=== PATIENT | male | born 1965 | race African-American/Black ===

== ENCOUNTER 2018-10-12 07:44 | Inpatient (IN) | payer BC, OTHER ==
[~2018-10-12] VITALS: Ht 180.3 cm; Wt 93.0 kg
[2018-10-12] VITALS (7 sets, daily range): BP systolic 125–176; BP diastolic 68–87
[2018-10-12] MEDS ORDERED: AVAPRO300 MG ORAL (07:55)
[2018-10-12] MEDS ORDERED: CRESTOR10 M2 ORAL (07:55)
[2018-10-12] MEDS ORDERED: WARFARIN SODIUM5 MG ORAL (07:55)
[2018-10-12] MEDS ORDERED: AMLODIPINE BESY10 MG ORAL (07:55)
[2018-10-12] MEDS ORDERED: ASPIRIN81 MG ORAL (07:55)
[2018-10-12] MEDS ORDERED: HYDRALAZINE HCL50 MG ORAL (07:55)
--- NOTE | 2018-10-12 08:06 | NUR ---
ED Nurse Note: Pt came in from home due to HTN with headache and vomiting since 0300 this morning. Pt BP upon arrival is 176/87. Emesis was clear fluid and phlegm. Pain 8/10 throbbing CURRIE. Pt visisted [facility] on 10/09/18 and discharged on 10/10/18 for the same reasons. AOx4, other VSS. Will cont to monitor.
--- NOTE | 2018-10-12 08:08 | Emergency Room Report ---
History of Present Illness General Chief Complaint: Hypertension Source: Patient Present Illness HPI Patient presents with complaints of uncontrolled blood pressure headaches vomiting Patient reports that he was recently at [facility] Was started on 3 new medications including hydralazine Over the past night he felt worse Increasingly nauseated blood pressure was at 180 at home Patient denies any focal weakness denies any chest pain denies any back or flank pain And presents with continued discomfort Allergies: Coded Allergies: No Known Allergies (Unverified , 10/12/18) Patient History Pertinent Family History: none Reviewed Nursing Documentation: PMH: Agreed; PSxH: Agreed Nursing Documentation-PMH Past Medical History: No History, Except For Hx Cardiac Problems: No - DVT on BLE Hx Hypertension: Yes Hx Pacemaker: No Hx Asthma: No Hx COPD: No Hx Diabetes: No Hx Cancer: No Hx Gastrointestinal Problems: No Hx Dialysis: No History Of Psychiatric Problem: No Hx Neurological Problems: No Hx Cerebrovascular Accident: No Hx Seizures: No Review of Systems All Other Systems: negative except mentioned in HPI Physical Exam Vital Signs Date Time Temp Pulse Resp B/P (MAP) Pulse Ox O2 Delivery O2 Flow Rate FiO2 10/12/18 07:48 97.9 97 16 96 Room Air 10/12/18 08:05 176/87 Sp02 EP Interpretation: reviewed, normal General Appearance: well appearing, no apparent distress Head: normocephalic, atraumatic Eyes: bilateral eye PERRL, bilateral eye EOMI ENT: hearing grossly normal, normal pharynx, TMs + canals normal, uvula midline Neck: full range of motion, supple, no meningismus, no bony tend Respiratory: lungs clear, normal breath sounds, no rhonchi, no respiratory distress, no retraction, no accessory muscle use Cardiovascular #1: normal peripheral pulses, regular rate, rhythm, no edema, no gallop, no JVD, no murmur Gastrointestinal: normal bowel sounds, non tender, soft, no mass, no organomegaly, non-distended, no guarding, no hernia, no pulsatile mass, no rebound Genitourinary: no CVA tenderness Musculoskeletal: normal inspection Neurologic: oriented x3, responsive, assisted living director III-XII nml as tested, motor strength/ tone normal, sensory intact Psychiatric: mood/affect normal Skin: normal color, no rash, warm/dry, palpation normal Lymphatic: normal inspection, no adenopathy Medical Decision Making Diagnostic Impression: Primary Impression: Malignant hypertension Additional Impression: Nausea & vomiting ER Course Patient is a fairly complex patient with multiple differential to consideration including but not limited to cardiac cardiopulmonary and vascular emergencies Patient's blood pressure has improved after acute intervention I spoke to patient's hospitalist who saw the patient recently at [facility] patient did not have symptoms of a nausea vomiting at that time patient also has multiple comorbidities including vascular disease At this time is admitted for further care please note that I spoke to [facility] hospitalist I spoke to 2 different physicians and I was told at this time after 4 hours That the patient has been requested for admission here Labs Test 10/12/18 08:20 10/12/18 15:30 White Blood Count 8.6 K/UL (4.8-10.8) Red Blood Count 4.90 M/UL (4.70-6.10) Hemoglobin 14.3 G/DL (14.2-18.0) Hematocrit 44.6 % (42.0-52.0) Mean Corpuscular Volume 91 FL (80-99) Mean Corpuscular Hemoglobin 29.2 PG (27.0-31.0) Mean Corpuscular Hemoglobin Concent 32.1 G/DL (32.0-36.0) Red Cell Distribution Width 12.9 % (11.6-14.8) Platelet Count 341 K/UL (150-450) Mean Platelet Volume 6.2 FL (6.5-10.1) Neutrophils (%) (Auto) 80.8 % (45.0-75.0) Lymphocytes (%) (Auto) 11.2 % (20.0-45.0) Monocytes (%) (Auto) 6.5 % (1.0-10.0) Eosinophils (%) (Auto) 0.2 % (0.0-3.0) Basophils (%) (Auto) 1.3 % (0.0-2.0) Sodium Level 134 MMOL/L (136-145) Potassium Level 4.0 MMOL/L (3.5-5.1) Chloride Level 96 MMOL/L (98-107) Carbon Dioxide Level 26 MMOL/L (21-32) Anion Gap 12 mmol/L (5-15) Blood Urea Nitrogen 16 mg/dL (7-18) Creatinine 1.3 MG/DL (0.55-1.30) Estimat Glomerular Filtration Rate 58.0 mL/min (>60) Glucose Level 128 MG/DL (74-106) Calcium Level 9.9 MG/DL (8.5-10.1) Total Bilirubin 0.5 MG/DL (0.2-1.0) Aspartate Amino Transf (AST/SGOT) 13 U/L (15-37) Alanine Aminotransferase (ALT/SGPT) 23 U/L (12-78) Alkaline Phosphatase 92 U/L (46-116) Total Creatine Kinase 111 U/L (26-308) Creatine Kinase MB 0.7 NG/ML (0.0-3.6) Creatine Kinase MB Relative Index 0.6 Troponin I 0.009 ng/mL (0.000-0.056) Total Protein 8.5 G/DL (6.4-8.2) Albumin 4.2 G/DL (3.4-5.0) Globulin 4.3 g/dL Albumin/Globulin Ratio 1.0 (1.0-2.7) Lipase 159 U/L (73-393) Prothrombin Time 36.9 SEC (9.30-11.50) Prothromb Time International Ratio 3.8 (0.9-1.1) EKG Diagnostic Results Rate: normal Rhythm: NSR ST Segments: no acute changes Rhythm Strip Diag. Results EP Interpretation: yes Rate: 70 Rhythm: NSR, no PVC's, no ectopy Chest X-Ray Diagnostic Results Chest X-Ray Diagnostic Results : Chest X-Ray Ordered: Yes # of Views/Limited/Complete: 1 View Indication: Chest Pain EP Interpretation: Yes Interpretation: no consolidation, no effusion, no pneumothorax Impression: No acute disease - Mild left hemidiaphragm elevation Electronically Signed by: Kole Flanagan DO Last Vital Signs Date Time Temp Pulse Resp B/P (MAP) Pulse Ox O2 Delivery O2 Flow Rate FiO2 10/12/18 08:05 83 20 176/87 99 Room Air 10/12/18 07:48 97.9 Status: improved Disposition: ADMITTED INPATIENT Condition: Serious Kole Flanagan DO October 12, 2018 08:08
--- NOTE | 2018-10-12 08:16 | NUR ---
ED Nurse Note: Blood drawn and sent to lab.
[2018-10-12 08:40] LABS: BASOPHILS % (AUTO) 1.3 % (0.0-2.0); EOSINOPHILS % (AUTO) 0.2 % (0.0-3.0); HEMATOCRIT 44.6 % (42.0-52.0); HEMOGLOBIN 14.3 G/DL (14.2-18.0); LYMPHOCYTES % (AUTO) 11.2 % (20.0-45.0); MEAN CORPUSCULAR VOLUME 91 FL (80-99); MONOCYTES % (AUTO) 6.5 % (1.0-10.0); NEUTROPHILS % (AUTO) 80.8 % (45.0-75.0); PLATELET COUNT 341 K/UL (150-450); RED CELL DISTRIBUTION WIDTH 12.9 % (11.6-14.8); WHITE BLOOD COUNT 8.6 K/UL (4.8-10.8)
[2018-10-12 08:48] LABS: ANION GAP 12 mmol/L (5-15); BLOOD UREA NITROGEN 16 mg/dL (7-18); CALCIUM 9.9 MG/DL (8.5-10.1); CARBON DIOXIDE 26 MMOL/L (21-32); CHLORIDE 96 MMOL/L (98-107); CREATININE 1.3 MG/DL (0.55-1.30); SODIUM 134 MMOL/L (136-145)
[2018-10-12 09:02] LABS: ALANINE AMINOTRANSFERASE 23 U/L (12-78); ALBUMIN 4.2 G/DL (3.4-5.0); ALKALINE PHOSPHATASE 92 U/L (46-116); ASPARTATE AMINO TRANSFERASE 13 U/L (15-37); BILIRUBIN,TOTAL 0.5 MG/DL (0.2-1.0); CKMB 0.7 NG/ML (0.0-3.6); CREATINE KINASE 111 U/L (26-308)
--- NOTE | 2018-10-12 09:45 | NUR ---
ED Nurse Note: Pt ambulated to the bathroom with stady gait, no active vomiting at this time.
--- NOTE | 2018-10-12 11:42 | Diagnostic Imaging Report ---
Indication: Dyspnea Comparison: None A single view chest radiograph was obtained. Findings: Cardiomediastinal appearance is within normal limits for age. The lungs are clear. Pulmonary vascularity is appropriate. The diaphragmatic contour is smooth and costophrenic angles are sharp. No pleural effusions are identified. The bones are unremarkable. Impression: No acute findings
--- NOTE | 2018-10-12 12:36 | NUR ---
ED Nurse Note: Report given to NINA Esquivel at ext [phone]. Pt to be transfered to room 214-[address] [facility] per protocol with all belongings.
--- NOTE | 2018-10-12 12:44 | NUR ---
ED Nurse Note: PT. AGREED TO STAY IN THE HOSPITAL BUT NOW WANTS TO GET TRANSFERRED. PT. HAS BEEN CHANGING HIS DECISIONS. EXPLAINED MULTIPLE TIMES TO THE PT. THE INSURANCE ISSUE. [facility]
--- NOTE | 2018-10-12 14:00 | NUR ---
NURSE NOTES: pt came from ER with Dx HTN, awake, alert, oriented, BP 150/79, no co SOB, no co chest pain, pt on RA, skin warm and dry to touch, intact, [facility] came to transfer pt other hospital, but BERNARD from [facility] say pt need stay in [place], dr. Henao aware.
--- NOTE | 2018-10-12 14:58 | History & Physical ---
History and Physical History & Physicial dict emesis CURRIE HTN aortoiliac occlusive disease John Henao MD October 12, 2018 14:58
[2018-10-12] MEDS ORDERED: Irbesartan 150mg tablet ORAL SCH (15:00)
[2018-10-12] MEDS: D5NS 1,000 ML IV SCH (15:16)
[2018-10-12 15:56] LABS: INR 3.8 (0.9-1.1)
--- NOTE | 2018-10-12 16:31 | General Progress Note ---
Assessment/Plan Assessment/Plan: GI CONSULT Dictated Assessment - transient N/V - seems to have subsided - Peripheral blood clots - HTN - H/A Recommendations - advance diet - check stool OB - outpatient colonoscopy since over 51 - further w/u if symptoms persist Thank you Alexa Arellano MD Subjective Allergies: Coded Allergies: No Known Allergies (Unverified , 10/12/18) Objective Last 24 Hour Vital Signs Date Time Temp Pulse Resp B/P (MAP) Pulse Ox O2 Delivery O2 Flow Rate FiO2 10/12/18 15:44 98.2 10/12/18 15:42 Room Air 10/12/18 15:13 86 150/86 10/12/18 15:12 150/86 10/12/18 13:30 98.2 78 20 150/79 (102) 98 10/12/18 12:37 97.9 75 20 143/78 100 Room Air 10/12/18 12:25 97.9 75 20 143/78 100 Room Air 10/12/18 10:55 97.9 79 19 155/83 100 Room Air 10/12/18 09:17 97.9 87 20 163/71 98 Room Air 10/12/18 08:09 83 20 Room Air 10/12/18 08:05 83 20 176/87 99 Room Air 10/12/18 07:48 97.9 97 16 96 Room Air Laboratory Tests 10/12/18 08:20: White Blood Count 8.6, Red Blood Count 4.90, Hemoglobin 14.3, Hematocrit 44.6, Mean Corpuscular Volume 91, Mean Corpuscular Hemoglobin 29.2, Mean Corpuscular Hemoglobin Concent 32.1, Red Cell Distribution Width 12.9, Platelet Count 341, Mean Platelet Volume 6.2L, Neutrophils (%) (Auto) 80.8H, Lymphocytes (%) (Auto) 11.2L, Monocytes (%) (Auto) 6.5, Eosinophils (%) (Auto) 0.2, Basophils (%) (Auto ) 1.3, Sodium Level 134L, Potassium Level 4.0, Chloride Level 96L, Carbon Dioxide Level 26, Anion Gap 12, Blood Urea Nitrogen 16, Creatinine 1.3, Estimat Glomerular Filtration Rate 58.0, Glucose Level 128H, Calcium Level 9.9, Total Bilirubin 0.5, Aspartate Amino Transf (AST/SGOT) 13L, Alanine Aminotransferase ( ALT/SGPT) 23, Alkaline Phosphatase 92, Total Creatine Kinase 111, Creatine Kinase MB 0.7, Creatine Kinase MB Relative Index 0.6, Troponin I 0.009, Total Protein 8.5H, Albumin 4.2, Globulin 4.3, Albumin/Globulin Ratio 1.0, Lipase 159 10/12/18 15:30: Prothrombin Time 36.9H, Prothromb Time International Ratio 3.8H Height (Feet): 5 Height (Inches): 11.00 Weight (Pounds): 205 Alexa Arellano MD October 12, 2018 16:31
--- NOTE | 2018-10-12 19:03 | NUR ---
HAND-OFF: Report given to DANA RN, PT SLEEPING, NO DISTRESS..
--- NOTE | 2018-10-12 19:10 | NUR ---
NURSE NOTES: Pt received from NINA Muhammad alert and oriented x4 with no acute s/s of distress noted. On room air, no s/s of SOB. IV site asymptomatic and patent. Bed in lowest position, bed alarm on. Call light and belongings within reach.
--- NOTE | 2018-10-12 22:00 | Consultation ---
DATE OF CONSULTATION: 10/12/2018 GASTROENTEROLOGY CONSULTATION: CONSULTING PHYSICIAN: Alexa Arellano M.D. REFERRING PHYSICIAN: John Henao M.D. CHIEF COMPLAINT: I was asked to see this patient by Dr. John Henao for evaluation of vomiting. HISTORY OF PRESENT ILLNESS: The patient is a pleasant 53-year-old, man, who was in his usual state of health until the day prior to admission when he noticed vomiting and nausea. The patient without any blood in his emesis. No abdominal pain. No reflux symptoms. It should be noted that recently, he was admitted to [facility] and was diagnosed with peripheral arterial clots in his lower extremities. He has been placed on Coumadin and he is supposed to see a supervisor roving. He has not had any previous history of blood clots and do not have a prolonged sedentary state before the blood clots. He has never had endoscopy or colonoscopy before. His stools are regular and brown. His vomiting has subsided today and he has been tolerating clear liquid diet. He had some headaches on admission with elevated blood pressure and therefore he was felt to have hypertensive emergency. A CT scan of the head has been ordered, but not performed yet. 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 FAMILY HISTORY: Positive for some type of cancer in mother. SOCIAL HISTORY: The patient is single. He has 2 children. He does not smoke or drink alcohol. He works in the [employer] business for [employer]. REVIEW OF SYSTEMS: Otherwise negative. PHYSICAL EXAMINATION: GENERAL: This is a pleasant man, seen in his room. HEENT: Normocephalic, atraumatic. Sclerae anicteric. Oropharynx clear. NECK: Supple. CHEST: Clear to auscultation. CARDIOVASCULAR: Revealed a regular rate. ABDOMEN: Soft. Good bowel sounds. There is no organomegaly. EXTREMITIES: Revealed no edema. LABORATORY DATA: Noted. ASSESSMENT: This patient presents with nausea, vomiting of unclear etiology. The symptoms appeared to be brief and self-limited and possibly related to another primary cause. Hypertensive emergency would be consideration although the patient is better now. In terms of the headache, I agree with the CT scan of the head since he is on anticoagulation. His diet can be advanced as tolerated. I will check the patient's stool occult blood, but I have advised them that he needs a colonoscopy for screening purpose regardless. Should his symptoms of nausea, vomiting persists, further workup including endoscopy and a CT scan be considered. RECOMMENDATIONS: Per above discussion and per orders written in the chart. Thank you for asking me to participate in the care this patient. Alexa Arellano M.D. DR: BETH JOB#: [id number] CC:
--- NOTE | 2018-10-12 22:30 | History and Physical Report ---
DATE OF ADMISSION: 10/12/2018 CHIEF COMPLAINT: Nausea and vomiting. HISTORY OF PRESENT ILLNESS: The patient was admitted through the emergency department for the above-noted symptoms as well as headache and hypertension with blood pressure up to 180 systolic. He was hospitalized recently at [facility] twice. He had abdominal pain and was found to have splenic and renal infarcts and an aortoiliac occlusive disease as well as severe hypertension. He was treated with antihypertensives and anticoagulants. He is noted to have hepatic cirrhosis. He returned to the hospital several days after discharge because of headache and hypertension. His blood pressure medications were adjusted and he was discharged home after an overnight stay 2 days ago. Now, he is vomiting and having headaches. He has no neurologic deficits or complaints. PAST MEDICAL HISTORY: Hypertension, aortoiliac occlusive disease, hepatic cirrhosis, and splenic and renal infarcts. MEDICATIONS: Irbesartan, amlodipine, Coumadin, and hydralazine. ALLERGIES: None. REVIEW OF SYSTEMS: Otherwise unremarkable. There is no history of hypercoagulable state. PHYSICAL EXAMINATION: GENERAL: The patient is alert and responds appropriately, complaining of headache and nausea. VITAL SIGNS: The blood pressure is most recently 150/79. HEENT: The head is normocephalic. The eyes show no scleral icterus or pupillary abnormalities. NECK: No jugular venous distention. CHEST: Clear. CARDIAC: Rhythm is regular. ABDOMEN: Soft and nontender. EXTREMITIES: Have no clubbing, cyanosis, or edema. LABORATORY STUDIES: Unremarkable. IMPRESSIONS: 1. Nausea and vomiting, possible gastroenteritis or adverse medication reaction. 2. Severe hypertension. 3. Cryptogenic cirrhosis. 4. Aortoiliac occlusive disease. PLAN: 1. We will get a CT scan of the brain and resume his blood pressure medications excluding one of them to determine if it is causing the nausea and vomiting. 2. Gastrointestinal consultation has been requested. 3. Intravenous fluids and antiemetics were ordered. John Henao M.D. DR: ZANA JOB#: [id number] CC:
[2018-10-13] VITALS: BP 128/74
[2018-10-13] MEDS: D5NS 1,000 ML IV SCH ×2 (03:27→17:30)
[2018-10-13 04:00] VITALS: BP 134/73
--- NOTE | 2018-10-13 07:15 | NUR ---
NURSE NOTES: I received the patient awake and resting in bed. Patient does not display any signs of distress or SOB. Bed in the lowest position and call light within reach. Patient alert and oriented x4. I will continue to monitor the patient and implement care.
--- NOTE | 2018-10-13 07:37 | NUR ---
HAND-OFF: Report given to NINA Mora. No acute s/s of distress noted.
[2018-10-13 07:47] VITALS: BP 127/60
--- NOTE | 2018-10-13 08:03 | General Progress Note ---
Assessment/Plan Problem List: (1) Malignant hypertension ICD Codes: I10 - Essential (primary) hypertension SNOMED: 59697660 (2) Nausea & vomiting ICD Codes: R11.2 - Nausea with vomiting, unspecified SNOMED: 08884253 Assessment/Plan: add colace no recurrent vomiting fu head CT may need neuro consult Subjective ROS Limited/Unobtainable: Yes Allergies: Coded Allergies: No Known Allergies (Unverified , 10/12/18) Subjective no vomiting over night c/o headache Objective Last 24 Hour Vital Signs Date Time Temp Pulse Resp B/P (MAP) Pulse Ox O2 Delivery O2 Flow Rate FiO2 10/13/18 07:47 98.2 72 18 127/60 (82) 99 10/13/18 04:00 85 10/13/18 04:00 97.9 82 20 134/73 (93) 96 10/13/18 00:00 98.1 90 20 128/74 (92) 96 10/12/18 21:00 Room Air 10/12/18 20:00 99.3 92 18 125/68 (87) 96 10/12/18 20:00 83 10/12/18 16:00 74 10/12/18 16:00 98.2 83 20 134/78 (96) 96 10/12/18 15:44 98.2 10/12/18 15:42 Room Air 10/12/18 15:13 86 150/86 10/12/18 15:12 150/86 10/12/18 13:30 76 10/12/18 13:30 98.2 78 20 150/79 (102) 98 10/12/18 12:37 97.9 75 20 143/78 100 Room Air 10/12/18 12:25 97.9 75 20 143/78 100 Room Air 10/12/18 10:55 97.9 79 19 155/83 100 Room Air 10/12/18 09:17 97.9 87 20 163/71 98 Room Air 10/12/18 08:09 83 20 Room Air 10/12/18 08:05 83 20 176/87 99 Room Air Intake and Output 10/12/18 10/13/18 19:00 07:00 Intake Total 1200 ml 150 ml Output Total 500 ml Balance 1200 ml -350 ml Intake Oral 200 ml 150 ml IV Total 1000 ml Output Urine Total 500 ml Laboratory Tests 10/12/18 08:20: White Blood Count 8.6, Red Blood Count 4.90, Hemoglobin 14.3, Hematocrit 44.6, Mean Corpuscular Volume 91, Mean Corpuscular Hemoglobin 29.2, Mean Corpuscular Hemoglobin Concent 32.1, Red Cell Distribution Width 12.9, Platelet Count 341, Mean Platelet Volume 6.2L, Neutrophils (%) (Auto) 80.8H, Lymphocytes (%) (Auto) 11.2L, Monocytes (%) (Auto) 6.5, Eosinophils (%) (Auto) 0.2, Basophils (%) (Auto ) 1.3, Sodium Level 134L, Potassium Level 4.0, Chloride Level 96L, Carbon Dioxide Level 26, Anion Gap 12, Blood Urea Nitrogen 16, Creatinine 1.3, Estimat Glomerular Filtration Rate 58.0, Glucose Level 128H, Calcium Level 9.9, Total Bilirubin 0.5, Aspartate Amino Transf (AST/SGOT) 13L, Alanine Aminotransferase ( ALT/SGPT) 23, Alkaline Phosphatase 92, Total Creatine Kinase 111, Creatine Kinase MB 0.7, Creatine Kinase MB Relative Index 0.6, Troponin I 0.009, Total Protein 8.5H, Albumin 4.2, Globulin 4.3, Albumin/Globulin Ratio 1.0, Lipase 159 10/12/18 15:30: Prothrombin Time 36.9H, Prothromb Time International Ratio 3.8H Height (Feet): 5 Height (Inches): 11.00 Weight (Pounds): 205 General Appearance: alert EENT: normal ENT inspection Neck: supple Cardiovascular: normal rate Respiratory/Chest: lungs clear Abdomen: normal bowel sounds, non tender, soft Extremities: non-tender Mina Katz MD October 13, 2018 08:03
[2018-10-13] MEDS: Irbesartan 150mg tablet ORAL SCH (08:14)
[2018-10-13 08:41] LABS: BASOPHILS % (AUTO) 1.9 % (0.0-2.0); EOSINOPHILS % (AUTO) 1.8 % (0.0-3.0); HEMOGLOBIN 13.7 G/DL (14.2-18.0); MEAN CORPUSCULAR VOLUME 91 FL (80-99); MONOCYTES % (AUTO) 11.7 % (1.0-10.0); NEUTROPHILS % (AUTO) 50.6 % (45.0-75.0); PLATELET COUNT 346 K/UL (150-450); RED CELL DISTRIBUTION WIDTH 13.1 % (11.6-14.8); WHITE BLOOD COUNT 6.2 K/UL (4.8-10.8)
[2018-10-13 08:46] LABS: INR 3.5 (0.9-1.1)
[2018-10-13 08:48] LABS: ANION GAP 7 mmol/L (5-15); BLOOD UREA NITROGEN 14 mg/dL (7-18); CALCIUM 9.4 MG/DL (8.5-10.1); CARBON DIOXIDE 30 MMOL/L (21-32); CHLORIDE 100 MMOL/L (98-107); CREATININE 1.4 MG/DL (0.55-1.30); POTASSIUM 3.7 MMOL/L (3.5-5.1); SODIUM 137 MMOL/L (136-145)
[2018-10-13] MEDS ORDERED: D5NS 1000ml IV ONE (10:19)
--- NOTE | 2018-10-13 10:45 | Diagnostic Imaging Report ---
Indication: Headache Technique: Contiguous 5 mm thick transaxial imaging of the head obtained in a Siemens Sensation [address] scanner. Soft tissue and bone windows generated. Automatic Exposure Control was utilized. Total Dose length Product (DLP): 1481.[address] Dose Index Volume (CTDIvol): 70.38 mGy Comparison: none Findings: The size and configuration of the cortical sulci, basal cisterns, and ventricles are within normal limits for age. There is no mass effect, midline shift, or edema identified. There is no evidence of acute hemorrhage or abnormal intra-axial or extra-axial fluid collections. The bones and soft tissues are unremarkable. Impression: No mass effect, edema or acute bleed. [facility] has communicated the preliminary results to the Emergency Department. Their findings are largely concordant with this report. The CT scanner at [facility] is accredited by the [employer] and the scans are performed using dose optimization techniques as appropriate to a performed exam including Automatic Exposure control.
[2018-10-13 11:54] VITALS: BP 144/85
[2018-10-13 15:52] VITALS: BP 147/76
--- NOTE | 2018-10-13 19:02 | NUR ---
CASE MANAGEMENT: REVIEW 53Y/M PRESENTED TO ED FROM HOME CC: DIZZINESS . HEADACHE . VOMITING SI: HTN MALIGNANCY . NAUSEA AND VOMITING T 97.9 HR 83 RR 20 BP 176/87 SAT 98% ROOM AIR NA 134 AST 13 PT/INR 36.9/3.8 IS: NS IVF BOLUS X1 PEPCID IV X1 ZOFRAN IV X1 NORVASC PO X1 AVAPRO PO X1 PATIENT ADMITTED TO TELEMETRY UNIT 10/12/2018 DCP: PATIENT IS FROM
--- NOTE | 2018-10-13 19:19 | NUR ---
HAND-OFF: Report given to Yani Ramirez RN.
--- NOTE | 2018-10-13 19:20 | NUR ---
NURSE NOTES: Received report from Yani Arcos RN. patient ion bed AAO X4 with no complaints of acute pain or distress at this time. Kept clean, dry, and, comfortable in bed. Able to express needs and wants appropriatel;y with no difficulty. IV line intact and patent with prescribed fluids running as ordered. Labs reviewed and noted with no new orders at this time. Patient ambulates to the bathroom with minimal assistance and place on continuous cardiac monitoring per protocol. Currently on RA with no S/S of respiratory distress or SOB, 02 saturation at 96-97%. Safety precaution in place; siderails X2 up, call light within reach, bed in lowest position, brakes and alarm on at all times. Needs and wants anticipated and attended. Will continue plan of care and monitor for any changes noted.
[2018-10-13 20:00] VITALS: BP 168/75
--- NOTE | 2018-10-13 20:37 | Consultation ---
History of Present Illness General Chief Complaint: Hypertension Present Illness Allergies: Coded Allergies: No Known Allergies (Unverified , 10/12/18) Medication History Scheduled Amlodipine Besylate* (Amlodipine Besylate*), 10 MG ORAL DAILY, (Reported) Aspirin* (Aspirin*), 81 MG ORAL DAILY, (Reported) Hydralazine Hcl* (Hydralazine Hcl*), 50 MG ORAL EVERY 12 HOURS, (Reported) Irbesartan* (Avapro*), 300 MG ORAL DAILY, (Reported) Rosuvastatin Calcium* (Crestor*), 10 MG ORAL DAILY, (Reported) Warfarin Sod* (Warfarin Sod*), 5 MG ORAL DAILY, (Reported) Patient History Healthcare decision maker Resuscitation status Full Code Advanced Directive on File No Physical Exam Last 24 Hour Vital Signs Date Time Temp Pulse Resp B/P (MAP) Pulse Ox O2 Delivery O2 Flow Rate FiO2 10/13/18 15:52 98.1 72 18 147/76 (99) 98 10/13/18 15:30 69 10/13/18 11:54 98.2 90 20 144/85 (104) 95 10/13/18 11:49 80 10/13/18 09:00 Room Air 10/13/18 08:46 98.2 10/13/18 08:16 72 127/60 10/13/18 08:14 127/60 10/13/18 07:47 77 10/13/18 07:47 98.2 72 18 127/60 (82) 99 10/13/18 04:00 85 10/13/18 04:00 97.9 82 20 134/73 (93) 96 10/13/18 00:00 98.1 90 20 128/74 (92) 96 10/12/18 21:00 Room Air Intake and Output 10/12/18 10/13/18 19:00 07:00 Intake Total 1200 ml 150 ml Output Total 500 ml Balance 1200 ml -350 ml Intake Oral 200 ml 150 ml IV Total 1000 ml Output Urine Total 500 ml Laboratory Tests Test 10/13/18 07:40 White Blood Count 6.2 K/UL (4.8-10.8) Red Blood Count 4.60 M/UL (4.70-6.10) L Hemoglobin 13.7 G/DL (14.2-18.0) L Hematocrit 42.0 % (42.0-52.0) Mean Corpuscular Volume 91 FL (80-99) Mean Corpuscular Hemoglobin 29.7 PG (27.0-31.0) Mean Corpuscular Hemoglobin Concent 32.5 G/DL (32.0-36.0) Red Cell Distribution Width 13.1 % (11.6-14.8) Platelet Count 346 K/UL (150-450) Mean Platelet Volume 6.3 FL (6.5-10.1) L Neutrophils (%) (Auto) 50.6 % (45.0-75.0) Lymphocytes (%) (Auto) 34.0 % (20.0-45.0) Monocytes (%) (Auto) 11.7 % (1.0-10.0) H Eosinophils (%) (Auto) 1.8 % (0.0-3.0) Basophils (%) (Auto) 1.9 % (0.0-2.0) Prothrombin Time 34.6 SEC (9.30-11.50) H Prothromb Time International Ratio 3.5 (0.9-1.1) H Sodium Level 137 MMOL/L (136-145) Potassium Level 3.7 MMOL/L (3.5-5.1) Chloride Level 100 MMOL/L (98-107) Carbon Dioxide Level 30 MMOL/L (21-32) Anion Gap 7 mmol/L (5-15) Blood Urea Nitrogen 14 mg/dL (7-18) Creatinine 1.4 MG/DL (0.55-1.30) H Estimat Glomerular Filtration Rate > 60 mL/min (>60) Glucose Level 97 MG/DL (74-106) Calcium Level 9.4 MG/DL (8.5-10.1) Height (Feet): 5 Height (Inches): 11.00 Weight (Pounds): 205 Medications Current Medications Medications (Trade) Dose Ordered Sig/Dina Route PRN Reason Start Time Stop Time Status Last Admin Dose Admin Acetaminophen (Tylenol) 650 mg Q4H PRN ORAL Mild Pain/Temp > 100.5 10/12/18 14:00 11/11/18 13:59 10/13/18 08:16 Amlodipine Besylate (Norvasc) 10 mg DAILY ORAL 10/13/18 09:00 11/12/18 08:59 10/13/18 08:16 Dextrose/Sodium Chloride 1,000 ml @ 75 mls/hr [id number] IV 10/12/18 14:00 11/11/18 13:59 10/13/18 17:30 Irbesartan (Avapro) 300 mg DAILY ORAL 10/13/18 09:00 11/12/18 08:59 10/13/18 08:14 Ondansetron HCl (Zofran) 4 mg Q4H PRN IVP Nausea & Vomiting 10/12/18 15:08 11/11/18 15:07 Warfarin Sodium (Coumadin per pharmacy) 1 ea DAILY PRN MISC Per rx protocol 10/12/18 15:00 11/11/18 14:59 Assessment/Plan Assessment/Plan: Hematology Consultation REQ MD: John Henao DOS: 10/13/18 RFC: Hypercoagulable disorder HPI Patient presents with complaints of uncontrolled blood pressure headaches vomiting Patient reports that he was recently at [facility] Was started on 3 new medications including hydralazine Over the past night he felt worse Increasingly nauseated blood pressure was at 180 at home Patient denies any focal weakness denies any chest pain denies any back or flank pain And presents with continued discomfort Neuro was consulted Coded Allergies: No Known Allergies (Unverified , 10/12/18) Pertinent Family History: none Reviewed Nursing Documentation: PMH: Agreed; PSxH: Agreed Past Medical History: No History, Except For Hx Cardiac Problems: No - DVT on BLE Hx Hypertension: Yes Hx Pacemaker: No Hx Asthma: No Hx COPD: No Hx Diabetes: No Hx Cancer: No Hx Gastrointestinal Problems: No Hx Dialysis: No History Of Psychiatric Problem: No Hx Neurological Problems: No Hx Cerebrovascular Accident: No Hx Seizures: No Review of Systems: negative except mentioned in HPI PE Vital Signs Date Time Temp Pulse Resp B/P (MAP) Pulse Ox O2 Delivery O2 Flow Rate FiO2 10/12/18 07:48 97.9 97 16 96 Room Air 10/12/18 08:05 176/87 Sp02 EP Interpretation: reviewed, normal General Appearance: well appearing, no apparent distress Head: normocephalic, atraumatic Eyes: bilateral eye PERRL, bilateral eye EOMI ENT: hearing grossly normal, normal pharynx, TMs + Neck: full range of motion, supple, no meningismus, no bony tend Respiratory: lungs clear, normal breath sounds Cardiovascular: normal peripheral pulses, regular rate Gastrointestinal: normal bowel sounds, non tender, soft, no mass, no organomegaly Genitourinary: no CVA tenderness Musculoskeletal: normal inspection Neurologic: oriented x3, responsive, 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 as tested, motor strength/ tone normal Psychiatric: mood/affect normal Skin: normal color, no rash, warm/dry, palpation normal Lymphatic: normal inspection, no adenopathy Labs Test 10/12/18 08:20 10/12/18 15:30 White Blood Count 8.6 K/UL (4.8-10.8) Red Blood Count 4.90 M/UL (4.70-6.10) Hemoglobin 14.3 G/DL (14.2-18.0) Hematocrit 44.6 % (42.0-52.0) Mean Corpuscular Volume 91 FL (80-99) Mean Corpuscular Hemoglobin 29.2 PG (27.0-31.0) Mean Corpuscular Hemoglobin Concent 32.1 G/DL (32.0-36.0) Red Cell Distribution Width 12.9 % (11.6-14.8) Platelet Count 341 K/UL (150-450) Mean Platelet Volume 6.2 FL (6.5-10.1) Neutrophils (%) (Auto) 80.8 % (45.0-75.0) Lymphocytes (%) (Auto) 11.2 % (20.0-45.0) Monocytes (%) (Auto) 6.5 % (1.0-10.0) Eosinophils (%) (Auto) 0.2 % (0.0-3.0) Basophils (%) (Auto) 1.3 % (0.0-2.0) Sodium Level 134 MMOL/L (136-145) Potassium Level 4.0 MMOL/L (3.5-5.1) Chloride Level 96 MMOL/L (98-107) Carbon Dioxide Level 26 MMOL/L (21-32) Anion Gap 12 mmol/L (5-15) Blood Urea Nitrogen 16 mg/dL (7-18) Creatinine 1.3 MG/DL (0.55-1.30) Estimat Glomerular Filtration Rate 58.0 mL/min (>60) Glucose Level 128 MG/DL (74-106) Calcium Level 9.9 MG/DL (8.5-10.1) Total Bilirubin 0.5 MG/DL (0.2-1.0) Aspartate Amino Transf (AST/SGOT) 13 U/L (15-37) Alanine Aminotransferase (ALT/SGPT) 23 U/L (12-78) Alkaline Phosphatase 92 U/L (46-116) Total Creatine Kinase 111 U/L (26-308) Creatine Kinase MB 0.7 NG/ML (0.0-3.6) Creatine Kinase MB Relative Index 0.6 Troponin I 0.009 ng/mL (0.000-0.056) Total Protein 8.5 G/DL (6.4-8.2) Albumin 4.2 G/DL (3.4-5.0) Globulin 4.3 g/dL Albumin/Globulin Ratio 1.0 (1.0-2.7) Lipase 159 U/L (73-393) Prothrombin Time 36.9 SEC (9.30-11.50) Prothromb Time International Ratio 3.8 (0.9-1.1) Diagnostic Impression: # Hypercoagulable disorder -- with bilateral dvts and histor y of nausea/ vomiting, needs neuro eval --> review prior workup that was completed at [facility] --> review to make sure had Factor V Leidin, Protein C, Protein S, Antiphosp Ab , Prothrombin gene mutation, Antithrombin III deficiency --> continue at this time on coumadin # Supertherapeutic disroder, inr 3.8 --> continue at this time on coumadin --> inr goal 2-3, continue anticoagulation # Malignant hypertension --> antihtn meds to continue prn # Nausea & vomiting --> as per gi recs # 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 Greatly appreciate consultation! Timothy Gonzalez MD October 13, 2018 20:37
--- NOTE | 2018-10-13 20:43 | Pulmonology Progress Note ---
Assessment/Plan Assessment/Plan IMPRESSIONS: 1. Nausea and vomiting, possible gastroenteritis or adverse medication reaction. 2. Severe hypertension. 3. Cryptogenic cirrhosis. 4. Aortoiliac occlusive disease. PLAN: 1.BP control. 2. no further NV 3. hpe lock IVF 4. CT negative DC plannign tentative in am fi bp controllwed Subjective Constitutional: Reports: no symptoms HEENT: Repors: no symptoms Respiratory: Reports: no symptoms Cardiovascular: Reports: no symptoms Genitourinary: Reports: no symptoms Allergies: Coded Allergies: No Known Allergies (Unverified , 10/12/18) Subjective feeling better bp controlled no cp nv or bleeding toelrating po oob Objective Last 24 Hour Vital Signs Date Time Temp Pulse Resp B/P (MAP) Pulse Ox O2 Delivery O2 Flow Rate FiO2 10/13/18 15:52 98.1 72 18 147/76 (99) 98 10/13/18 15:30 69 10/13/18 11:54 98.2 90 20 144/85 (104) 95 10/13/18 11:49 80 10/13/18 09:00 Room Air 10/13/18 08:46 98.2 10/13/18 08:16 72 127/60 10/13/18 08:14 127/60 10/13/18 07:47 77 10/13/18 07:47 98.2 72 18 127/60 (82) 99 10/13/18 04:00 85 10/13/18 04:00 97.9 82 20 134/73 (93) 96 10/13/18 00:00 98.1 90 20 128/74 (92) 96 10/12/18 21:00 Room Air Intake and Output 10/12/18 10/13/18 19:00 07:00 Intake Total 1200 ml 150 ml Output Total 500 ml Balance 1200 ml -350 ml Intake Oral 200 ml 150 ml IV Total 1000 ml Output Urine Total 500 ml General Appearance: WD/WN Respiratory/Chest: lungs clear, normal breath sounds Cardiovascular: normal peripheral pulses, normal rate Abdomen: soft, non tender, no organomegaly Neurologic/Psychiatric: 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 grossly normal, no motor/sensory deficits, oriented x 3, responsive Microbiology Date/Time Source Procedure Growth Status 10/12/18 17:00 Rectum Received Laboratory Tests 10/13/18 07:40: White Blood Count 6.2, Red Blood Count 4.60L, Hemoglobin 13.7L, Hematocrit 42.0 , Mean Corpuscular Volume 91, Mean Corpuscular Hemoglobin 29.7, Mean Corpuscular Hemoglobin Concent 32.5, Red Cell Distribution Width 13.1, Platelet Count 346, Mean Platelet Volume 6.3L, Neutrophils (%) (Auto) 50.6, Lymphocytes ( %) (Auto) 34.0, Monocytes (%) (Auto) 11.7H, Eosinophils (%) (Auto) 1.8, Basophils (%) (Auto) 1.9, Prothrombin Time 34.6H, Prothromb Time International Ratio 3.5H, Sodium Level 137, Potassium Level 3.7, Chloride Level 100, Carbon Dioxide Level 30, Anion Gap 7, Blood Urea Nitrogen 14, Creatinine 1.4H, Estimat Glomerular Filtration Rate > 60, Glucose Level 97, Calcium Level 9.4 Current Medications Medications (Trade) Dose Ordered Sig/Dina Route PRN Reason Start Time Stop Time Status Last Admin Dose Admin Acetaminophen (Tylenol) 650 mg Q4H PRN ORAL Mild Pain/Temp > 100.5 10/12/18 14:00 11/11/18 13:59 10/13/18 08:16 Amlodipine Besylate (Norvasc) 10 mg DAILY ORAL 10/13/18 09:00 11/12/18 08:59 10/13/18 08:16 Dextrose/Sodium Chloride 1,000 ml @ 75 mls/hr [id number] IV 10/12/18 14:00 11/11/18 13:59 10/13/18 17:30 Irbesartan (Avapro) 300 mg DAILY ORAL 10/13/18 09:00 11/12/18 08:59 10/13/18 08:14 Ondansetron HCl (Zofran) 4 mg Q4H PRN IVP Nausea & Vomiting 10/12/18 15:08 11/11/18 15:07 Warfarin Sodium (Coumadin per pharmacy) 1 ea DAILY PRN MISC Per rx protocol 10/12/18 15:00 11/11/18 14:59 Diamante Banks DO October 13, 2018 20:43
[2018-10-14] VITALS: BP 165/86
--- NOTE | 2018-10-14 02:33 | NUR ---
NURSE NOTES: Patient in bed asleep with no S/S of distress noted at this time. Will continue to monitor.
[2018-10-14 04:00] VITALS: BP 116/84
[2018-10-14] MEDS: D5NS 1,000 ML IV SCH ×2 (05:44→08:34)
--- NOTE | 2018-10-14 07:03 | NUR ---
HAND-OFF: Report given to Tara Juan RN. Patient in bed asleep with no S/S of distress at this time. Endorsed plan of care.
--- NOTE | 2018-10-14 07:39 | NUR ---
NURSE NOTES: Received patient asleep. easily arousable. No SOB/respi distress noted. Call light made within reach. Bed on lowest position. Will cont to monitor patient.
[2018-10-14 08:00] VITALS: BP 129/78
[2018-10-14] MEDS: Irbesartan 150mg tablet ORAL SCH (08:31)
[2018-10-14 08:37] LABS: INR 2.1 (0.9-1.1)
--- NOTE | 2018-10-14 08:41 | General Progress Note ---
Assessment/Plan Problem List: (1) Malignant hypertension ICD Codes: I10 - Essential (primary) hypertension SNOMED: 73496545 (2) Nausea & vomiting ICD Codes: R11.2 - Nausea with vomiting, unspecified SNOMED: 76730499 (3) Constipation ICD Codes: K59.00 - Constipation, unspecified SNOMED: 97287386 (4) Hypercoagulable state ICD Codes: D68.59 - Other primary thrombophilia SNOMED: 95424085 Assessment/Plan: add miralax to colace last BM 10/12 no recurrent vomiting may need neuro consult hem in put appreciated Subjective ROS Limited/Unobtainable: No Allergies: Coded Allergies: No Known Allergies (Unverified , 10/12/18) Subjective no vomiting over night c/o headache Objective Last 24 Hour Vital Signs Date Time Temp Pulse Resp B/P (MAP) Pulse Ox O2 Delivery O2 Flow Rate FiO2 10/14/18 08:31 129/78 10/14/18 08:30 80 129/78 10/14/18 08:00 80 10/14/18 08:00 97.8 80 20 129/78 (95) 100 10/14/18 04:00 98.3 87 20 116/84 (95) 100 10/14/18 04:00 72 10/14/18 00:00 71 10/14/18 00:00 98.6 89 20 165/86 (112) 100 10/13/18 21:00 Room Air 10/13/18 20:00 97.9 85 20 168/75 (106) 96 10/13/18 20:00 82 10/13/18 15:52 98.1 72 18 147/76 (99) 98 10/13/18 15:30 69 10/13/18 11:54 98.2 90 20 144/85 (104) 95 10/13/18 11:49 80 10/13/18 09:00 Room Air 10/13/18 08:46 98.2 Intake and Output 10/13/18 10/14/18 19:00 07:00 Intake Total 1380 ml 925 ml Output Total 1000 ml 800 ml Balance 380 ml 125 ml Intake Oral 480 ml 120 ml IV Total 900 ml 805 ml Output Urine Total 1000 ml 800 ml Laboratory Tests 10/14/18 07:20: Prothrombin Time [Pending], Prothromb Time International Ratio [Pending] Height (Feet): 5 Height (Inches): 11.00 Weight (Pounds): 205 General Appearance: alert EENT: normal ENT inspection Neck: supple Cardiovascular: normal rate Respiratory/Chest: lungs clear Abdomen: normal bowel sounds, non tender, soft Extremities: non-tender Mina Katz MD October 14, 2018 08:41
[2018-10-14 12:00] VITALS: BP 118/60
--- NOTE | 2018-10-14 14:24 | NUR ---
CASE MANAGEMENT: REVIEW SI: HTN MALIGNANCY . NAUSEA AND VOMITING T 97.7 HR 72 RR 20 BP 165/75 SAT 100% ROOM AIR OB STOOL PENDING IS: WARFARIN 5MG PO X1 IRBESARTAN PO QD NORVASC PO QD ZOFRAN IV Q4HR TELEMETRY UNIT STATUS DCP: PATIENT IS FROM HOME
[2018-10-14 16:00] VITALS: BP 147/80
--- NOTE | 2018-10-14 16:43 | Pulmonology Progress Note ---
Assessment/Plan Assessment/Plan IMPRESSIONS: 1. Nausea and vomiting, possible gastroenteritis or adverse medication reaction. 2. Severe hypertension. 3. Cryptogenic cirrhosis. 4. Aortoiliac occlusive disease. PLAN: 1.BP control. is better, intermittent elevations, would continue to monitor 2. no further NV 3. hpe lock IVF 4. CT negative DC planning tentative in am if bp controlled 5. coumadin per Rx Subjective Constitutional: Reports: no symptoms HEENT: Repors: no symptoms Respiratory: Reports: no symptoms Cardiovascular: Reports: no symptoms Gastrointestinal/Abdominal: Reports: no symptoms Genitourinary: Reports: no symptoms Allergies: Coded Allergies: No Known Allergies (Unverified , 10/12/18) Subjective overal feeling better bp controlled until this afternoon elevated again to 180 no cp nv or bleeding tolerating po oob Objective Last 24 Hour Vital Signs Date Time Temp Pulse Resp B/P (MAP) Pulse Ox O2 Delivery O2 Flow Rate FiO2 10/14/18 16:00 83 10/14/18 15:38 180/102 10/14/18 12:00 97.7 72 20 118/60 (79) 100 10/14/18 12:00 87 10/14/18 09:00 Room Air 10/14/18 08:31 129/78 10/14/18 08:30 80 129/78 10/14/18 08:00 80 10/14/18 08:00 97.8 80 20 129/78 (95) 100 10/14/18 04:00 98.3 87 20 116/84 (95) 100 10/14/18 04:00 72 10/14/18 00:00 71 10/14/18 00:00 98.6 89 20 165/86 (112) 100 10/13/18 21:00 Room Air 10/13/18 20:00 97.9 85 20 168/75 (106) 96 10/13/18 20:00 82 Intake and Output 10/13/18 10/14/18 18:59 06:59 Intake Total 1305 ml 1000 ml Output Total 1000 ml 800 ml Balance 305 ml 200 ml Intake Oral 480 ml 120 ml IV Total 825 ml 880 ml Output Urine Total 1000 ml 800 ml General Appearance: WD/WN Respiratory/Chest: lungs clear, normal breath sounds Cardiovascular: normal peripheral pulses, normal rate Abdomen: soft, non tender, no organomegaly Genitourinary: normal external genitalia Extremities: no clubbing Skin: no rash, no ulcers 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 Complete 10/12/18 17:00 Rectum VRE Culture - Final NO VANCOMYCIN RESISTANT ENTEROCOCCUS ... Complete 10/12/18 17:00 Rectum Received Laboratory Tests 10/14/18 07:20: Prothrombin Time 20.9H, Prothromb Time International Ratio 2.1H 10/14/18 12:35: Stool Occult Blood Negative Current Medications Medications (Trade) Dose Ordered Sig/Dina Route PRN Reason Start Time Stop Time Status Last Admin Dose Admin Acetaminophen (Tylenol) 650 mg Q4H PRN ORAL Mild Pain/Temp > 100.5 10/12/18 14:00 11/11/18 13:59 10/13/18 08:16 Amlodipine Besylate (Norvasc) 10 mg DAILY ORAL 10/13/18 09:00 11/12/18 08:59 10/14/18 08:30 Clonidine HCl (Catapres Tab) 0.1 mg Q4H PRN ORAL For High Blood Pressure 10/13/18 21:15 11/12/18 21:14 10/14/18 15:38 Dextrose/Sodium Chloride 1,000 ml @ 75 mls/hr [id number] IV 10/12/18 14:00 11/11/18 13:59 10/14/18 08:34 Irbesartan (Avapro) 300 mg DAILY ORAL 10/13/18 09:00 11/12/18 08:59 10/14/18 08:31 Ondansetron HCl (Zofran) 4 mg Q4H PRN IVP Nausea & Vomiting 10/12/18 15:08 11/11/18 15:07 Polyethylene Glycol (Miralax) 17 gm BEDTIME ORAL 10/14/18 21:00 11/13/18 20:59 Warfarin Sodium (Coumadin per pharmacy) 1 ea DAILY PRN MISC Per rx protocol 10/12/18 15:00 11/11/18 14:59 Warfarin Sodium (Coumadin) 5 mg COUMADIN ORAL 10/14/18 17:00 10/14/18 18:00 Diamante Banks DO October 14, 2018 16:43
[2018-10-14] MEDS ORDERED: Warfarin Sodium 5mg ORAL SCH (17:00)
--- NOTE | 2018-10-14 19:13 | NUR ---
NURSE NOTES: Patient requested if he can have something for his occasional bouts of anxiety, states that "sometimes i just stress about my BP being high". Called and received order from Yani Henao MD. new orders received and carried out. Will continue to monitor
--- NOTE | 2018-10-14 19:15 | NUR ---
NURSE NOTES: Received report from Tara Juan RN. patient ion bed AAO X4 with no complaints of acute pain or distress at this time. Kept clean, dry, and, comfortable in bed. Able to express needs and wants appropriately with no difficulty. IV line intact and patent with prescribed fluids running as ordered. Labs reviewed and noted with no new orders at this time. Patient ambulates to the bathroom with minimal assistance and place on continuous cardiac monitoring per protocol. Currently on RA with no S/S of respiratory distress or SOB, 02 saturation at 97-98%. Safety precaution in place; siderails X2 up, call light within reach, bed in lowest position, brakes and alarm on at all times. Needs and wants anticipated and attended. Will continue plan of care and monitor for any changes noted.
--- NOTE | 2018-10-14 19:27 | NUR ---
HAND-OFF: Report given to NINA Villalobos.
--- NOTE | 2018-10-14 19:39 | Physician Query ---
Clarification is required for compliance, coding accuracy, and to reflect severity of illness for this patient Dear Dr. Henao, Date: 10/14/2018 Exercise Instruct/CDS Name: Julia Lewis male with complaints of headache, nausea /vomiting. Noted to have elevated blood pressure 180/102. Head CT- no ich, mass or edema. Meds: Clonidine PRN, Daily Norvasc 10 mg oral. Please Clarify the specific type of hypertension: [x] Hypertensive Urgency [] Hypertensive Emergency [] Essential Hypertension [] Other: Present on Admission: [x] Yes [] No [] Clinically Undetermined Physician signature Date Please also document in your Progress Notes and/or Discharge Summary and indicate if the condition was present on admission. MTDD
[2018-10-14 20:00] VITALS: BP 168/98
[2018-10-14] MEDS ORDERED: Miralax 17gm pkt ORAL SCH (21:00)
[2018-10-14] MEDS: LORazepam 0.5mg tab ORAL PRN (21:30)
[2018-10-15] VITALS: BP 166/94
--- NOTE | 2018-10-15 03:06 | NUR ---
NURSE NOTES: Patient in bed asleep with no S/S of distress noted at this time. Will continue to monitor
[2018-10-15 04:00] VITALS: BP 125/70
[2018-10-15] MEDS: D5NS 1,000 ML IV SCH (05:39)
--- NOTE | 2018-10-15 07:41 | NUR ---
HAND-OFF: Report given to Nahomi Calderón RN. Patient in bed with no S/S of distress noted at this time. Endorsed plan of care
--- NOTE | 2018-10-15 07:42 | NUR ---
NURSE NOTES: Received report from Wilfredo/RN, Patient is resting on bed, No acute distress/SOB noted. IV running @ 75 cc/hr on left forearm. Bed in low position, and locked. Call light within reach. Will continue plan of care.
[2018-10-15 08:00] VITALS: BP 148/91
--- NOTE | 2018-10-15 08:28 | General Progress Note ---
Assessment/Plan Assessment/Plan: Assessment - transient N/V - subsided - Peripheral blood clots - HTN - H/A Recommendations - po diet as tolerated - check stool OB - outpatient colonoscopy since over 51 - further w/u if symptoms persist Subjective Allergies: Coded Allergies: No Known Allergies (Unverified , 10/12/18) Subjective Feels OK no N/V tolerating po intake Objective Last 24 Hour Vital Signs Date Time Temp Pulse Resp B/P (MAP) Pulse Ox O2 Delivery O2 Flow Rate FiO2 10/15/18 04:00 97.9 80 20 125/70 (88) 99 10/15/18 04:00 68 10/15/18 00:00 82 10/15/18 00:00 98.0 100 20 166/94 (118) 96 10/14/18 21:00 Room Air 10/14/18 20:00 91 10/14/18 20:00 98.0 104 20 168/98 (121) 98 10/14/18 16:00 97.5 110 18 147/80 (102) 97 10/14/18 16:00 83 10/14/18 15:38 180/102 10/14/18 12:00 97.7 72 20 118/60 (79) 100 10/14/18 12:00 87 10/14/18 09:00 Room Air 10/14/18 08:31 129/78 10/14/18 08:30 80 129/78 Intake and Output 10/14/18 10/15/18 19:00 07:00 Intake Total 1200 ml 240 ml Output Total 800 ml 650 ml Balance 400 ml -410 ml Intake Oral 600 ml 240 ml IV Total 600 ml Output Urine Total 800 ml 650 ml # Voids 1 2 # Bowel Movements 1 Laboratory Tests 10/14/18 12:35: Stool Occult Blood Negative Height (Feet): 5 Height (Inches): 11.00 Weight (Pounds): 205 Objective WDWN AA man NCAT supple CTA RRR abd soft ND NT no edema non focal Alexa Arellano MD October 15, 2018 08:28
[2018-10-15] MEDS: Irbesartan 150mg tablet ORAL SCH (08:35)
[2018-10-15] MEDS ORDERED: Metoprolol Succinate XL 50mg tab ORAL SCH (09:00)
[2018-10-15 09:08] LABS: INR 1.5 (0.9-1.1)
--- NOTE | 2018-10-15 10:44 | General Progress Note ---
Assessment/Plan Assessment/Plan: 1. Nausea and vomiting, possible gastroenteritis or adverse medication reaction , resolved 2. Severe hypertension, controlled 3. Cryptogenic cirrhosis 4. Aortoiliac occlusive disease PLAN: no more CURRIE or nausea feels anxiety re taking BP HR high; add metoprolol if tolerates well will dc later today Subjective Constitutional: Reports: no symptoms Neurologic/Psychiatric: Reports: anxiety Allergies: Coded Allergies: No Known Allergies (Unverified , 10/12/18) Objective Last 24 Hour Vital Signs Date Time Temp Pulse Resp B/P (MAP) Pulse Ox O2 Delivery O2 Flow Rate FiO2 10/15/18 09:14 114 148/91 10/15/18 09:00 Room Air 10/15/18 08:35 148/91 10/15/18 08:34 114 148/91 10/15/18 08:00 98.7 114 23 148/91 (110) 99 10/15/18 04:00 97.9 80 20 125/70 (88) 99 10/15/18 04:00 68 10/15/18 00:00 82 10/15/18 00:00 98.0 100 20 166/94 (118) 96 10/14/18 21:00 Room Air 10/14/18 20:00 91 10/14/18 20:00 98.0 104 20 168/98 (121) 98 10/14/18 16:00 97.5 110 18 147/80 (102) 97 10/14/18 16:00 83 10/14/18 15:38 180/102 10/14/18 12:00 97.7 72 20 118/60 (79) 100 10/14/18 12:00 87 Intake and Output 10/14/18 10/15/18 19:00 07:00 Intake Total 1200 ml 240 ml Output Total 800 ml 650 ml Balance 400 ml -410 ml Intake Oral 600 ml 240 ml IV Total 600 ml Output Urine Total 800 ml 650 ml # Voids 1 2 # Bowel Movements 1 Laboratory Tests 10/14/18 12:35: Stool Occult Blood Negative 10/15/18 08:20: Prothrombin Time 15.4H, Prothromb Time International Ratio 1.5H Height (Feet): 5 Height (Inches): 11.00 Weight (Pounds): 205 General Appearance: no apparent distress Neck: supple Cardiovascular: normal rate Respiratory/Chest: lungs clear John Henao MD October 15, 2018 10:44
[2018-10-15] MEDS: LORazepam 0.5mg tab ORAL PRN (11:34)
[2018-10-15 12:00] VITALS: BP 155/99
[2018-10-15] MEDS ORDERED: Metoprolol Succinate ORAL (12:24)
--- NOTE | 2018-10-15 14:34 | Consultation ---
Consult Note Consult Note HISTORY OF PRESENT ILLNESS: I was asked to evaluate Mr. Sharad Rodas by his primary insurance [employer]. The patient was admitted through the emergency department for the above-noted symptoms as well as headache and hypertension with blood pressure up to 180 systolic. He was hospitalized recently at [facility] twice. He had abdominal pain and was found to have splenic and renal infarcts and an aortoiliac occlusive disease as well as severe hypertension. He was treated with antihypertensives and anticoagulants. He is noted to have hepatic cirrhosis. He returned to the hospital several days after discharge because of headache and hypertension. His blood pressure medications were adjusted and he was discharged home after an overnight stay 2 days ago. He has no neurologic deficits or complaints. PAST MEDICAL HISTORY: Hypertension, aortoiliac occlusive disease, hepatic cirrhosis, and splenic and renal infarcts. MEDICATIONS: Irbesartan, amlodipine, Coumadin, and hydralazine. ALLERGIES: None. REVIEW OF SYSTEMS: Otherwise unremarkable. There is no history of hypercoagulable state. PHYSICAL EXAMINATION: GENERAL: The patient is alert and responds appropriately, complaining of headache and nausea. VITAL SIGNS: The blood pressure is most recently 160/79. HEENT: The head is normocephalic. The eyes show no scleral icterus or pupillary abnormalities. NECK: No jugular venous distention. CHEST: Clear. CARDIAC: Rhythm is regular. ABDOMEN: Soft and nontender. EXTREMITIES: Have no clubbing, cyanosis, or edema. LABORATORY STUDIES: Unremarkable. IMPRESSION: 1. Nausea and vomiting 2. Severe hypertension. 3. Cryptogenic cirrhosis. 4. Aortoiliac occlusive disease. PLAN: Seen and evaluated by Dr. Henao. Discussed in detail. DC home today if symptoms resolve. Rod Nowak M.D., MD October 15, 2018 14:34
--- NOTE | 2018-10-15 15:30 | NUR ---
NURSE NOTES: Discharge instruction given, Patient verbalized understanding. Heart monitor and IV removed, No acute distress/SOB noted. Belonging check done. Awaiting on medication from pharmacy.
[2018-10-15 16:00] VITALS: BP 169/107
[2018-10-15] MEDS ORDERED: Warfarin Sodium 5mg ORAL SCH (17:00)
--- NOTE | 2018-10-15 17:05 | NUR ---
NURSE NOTES: Patient in stable condition, No sign of distress. Escorted to downstairs. Left via private vehicle.
--- NOTE | 2018-10-15 17:31 | General Progress Note ---
Assessment/Plan Assessment/Plan: Diagnostic Impression: # Hypercoagulable disorder -- with bilateral dvts of lower extremities, and history of nausea/vomiting, needs neuro eval --> review prior workup that was completed at [facility] --> review to make sure had Factor V Leidin, Protein C, Protein S, Antiphosp Ab , Prothrombin gene mutation, Antithrombin III deficiency --> continue at this time on coumadin --> no prior precipitating factors prior to stroke # Supertherapeutic disorder, inr 3.8->2.5-->1.5 --> continue at this time on coumadin --> inr goal 2-3, continue anticoagulation # Malignant hypertension --> antihtn meds to continue prn # Nausea & vomiting --> as per gi recs # 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 Greatly appreciate consultation! Subjective Constitutional: Denies: no symptoms, chills, diaphoresis, fever, malaise, weakness, other Cardiovascular: Denies: no symptoms, chest pain, edema, irregular heart rate, lightheadedness, palpitations, syncope, other Respiratory: Denies: no symptoms, cough, orthopnea, shortness of breath, SOB with excertion, SOB at rest, sputum, stridor, wheezing, other Gastrointestinal/Abdominal: Denies: no symptoms, abdomen distended, abdominal pain, black stools, tarry stools, blood in stool, constipated, diarrhea, difficulty swallowing, nausea, poor appetite, poor fluid intake, rectal bleeding , vomiting, other Genitourinary: Denies: no symptoms, burning, discharge, frequency, flank pain, hematuria, incontinence, pain, urgency, other Endocrine: Denies: no symptoms, excessive sweating, flushing, intolerance to cold, intolerance to heat, increased hunger, increased thirst, increased urine, unexplained weight gain, unexplained weight loss, other Allergies: Coded Allergies: No Known Allergies (Unverified , 10/12/18) Objective Last 24 Hour Vital Signs Date Time Temp Pulse Resp B/P (MAP) Pulse Ox O2 Delivery O2 Flow Rate FiO2 10/15/18 09:14 114 148/91 10/15/18 09:00 Room Air 10/15/18 08:35 148/91 10/15/18 08:34 114 148/91 10/15/18 08:00 98.7 114 23 148/91 (110) 99 10/15/18 04:00 97.9 80 20 125/70 (88) 99 10/15/18 04:00 68 10/15/18 00:00 82 10/15/18 00:00 98.0 100 20 166/94 (118) 96 10/14/18 21:00 Room Air 10/14/18 20:00 91 10/14/18 20:00 98.0 104 20 168/98 (121) 98 Intake and Output 10/14/18 10/15/18 19:00 07:00 Intake Total 1200 ml 240 ml Output Total 800 ml 650 ml Balance 400 ml -410 ml Intake Oral 600 ml 240 ml IV Total 600 ml Output Urine Total 800 ml 650 ml # Voids 1 2 # Bowel Movements 1 Laboratory Tests 10/15/18 08:20: Prothrombin Time 15.4H, Prothromb Time International Ratio 1.5H Height (Feet): 5 Height (Inches): 11.00 Weight (Pounds): 205 Objective Sp02 EP Interpretation: reviewed, normal General Appearance: well appearing, no apparent distress Head: normocephalic, atraumatic Eyes: bilateral eye PERRL, bilateral eye EOMI ENT: hearing grossly normal, normal pharynx, TMs + Neck: full range of motion, supple, no meningismus, no bony tend Respiratory: lungs clear, normal breath sounds Cardiovascular: normal peripheral pulses, regular rate Gastrointestinal: normal bowel sounds, non tender, soft, no mass, no organomegaly Genitourinary: no CVA tenderness Musculoskeletal: normal inspection Neurologic: oriented x3, responsive, vp purchasing III-XII nml as tested, motor strength/ tone normal Psychiatric: mood/affect normal Timothy Gonzalez MD October 15, 2018 17:31
--- NOTE | 2018-10-15 19:41 | Cardiology Report ---
APPROVED REPORT EKG Measurement Heart [id number] ID [id number] Normal sinus rhythm Minimal voltage criteria for LVH, may be normal variant Borderline ECG
--- NOTE | 2018-10-16 08:40 | Discharge Summary ---
Discharge Summary Discharge Summary _ DATE OF ADMISSION: 10/12/2018 DATE OF DISCHARGE: 10/15/2018 DISCHARGED BY: Dr. Henao REASON FOR ADMISSION: 53 years old male with past medical history of hypertension, aortoiliac occlusive disease, hepatic cirrhosis, splenic and renal infarcts, history of bilateral lower extremities DVT, presented to emergency department complaining of uncontrolled blood pressure, headache and vomiting. Patient was recently hospitalized at [facility] twice. Patient had abdominal pain and found to have splenic and renal infarcts as well as the aortoiliac occlusive disease and severe hypertension. Patient was treated with antihypertensives and anticoagulation. Patient was also noted to have hepatic cirrhosis. Antihypertensive medication regimen was adjusted, and patient was discharged home. At this time he presented with vomiting, headache, no neurological deficit. Blood pressure was 176/87 on admission, otherwise vital signs were stable. Laboratory work-up revealed no leukocytosis, stable hemoglobin and hematocrit. Stable electrolytes, BUN 16, creatinine 1.3. Glucose 128. Stable LFT and lipase. Troponin - 0.009. EKG revealed normal sinus rhythm, no acute ischemic changes. Chest x-ray demonstrated no acute cardiopulmonary pathology. Patient subsequently was admitted for further evaluation and management. CONSULTANTS: GI specialist Dr. Arellano news photographer/oncologist Dr. Gonzalez IM/pulmo DR Gomes ( affiliated with pt insurance) HOSPITAL COURSE: Patient admitted to telemetry floor. CT of the head demonstrated no acute intracranial pathology. Antihypertensive regimen was resumed. Hemodynamic status was closely monitor Symptomatic treatment provided. Blood pressure was managed with calcium channel travis and ARB. Beta-travis was subsequently added to improve blood pressure control as well as help with heart rate. Patient was continued on Coumadin as per pharmacy dosing to keep INR in therapeutic range. INR remained therapeutic. Anxiolytic provided as needed . Anxiety was controlled. Supportive care provided. GI specialist followed. Per GI specialist, patient have transient nausea and vomiting, which subsided with symptomatic treatment, possibly related to hypertensive urgency. Patient slowly started on diet, and was advanced as tolerated. GI specialist recommended outpatient colonoscopy, since patient over 50 year old old age. In addition, GI specialist recommended further work-up if systems persist. Patient was able to tolerate diet. Principal Java Developer seen and evaluated the patient. Patient with history of bilateral lower extremity DVT. Prior work-up was completed at [facility] , no precipitating factors prior to stroke. Principal Java Developer recommended to continue with anti-coagulation to keep INR in therapeutic range. Principal Java Developer also recommended neurology evaluation, which can be done as outpatient. Another physician, affiliated with patient's insurance, seen and evaluated the patient and cleared patient for discharge home. Patient clinically stabilized and was ready for discharge home FINAL DIAGNOSES: Hypertensive urgency , present on admission Hypercoagulable disorder with bilateral DVT lower extremity Transient nausea and vomiting, resolved Headache -resolved Aortoiliac occlusive disease Cryptogenic cirrhosis DISCHARGE MEDICATIONS: See Medication Reconciliation list. DISCHARGE INSTRUCTIONS: Patient was discharged home with home health services. Follow up with primary care provider in one week. I have been assigned to dictate discharge summary for this account. I was not involved in the patient's management. Jen Carey NP October 16, 2018 08:40
== END 2018-10-15 17:00 | disposition home or self-care (01) | DRG 305 ==
LOC: EMR 08:10 → 2E 11:48 → EDBEDREQ 12:24
DX: I16.0 Hypertensive urgency (principal); I74.09 Other arterial embolism and thrombosis of abdominal aorta; D68.59 Other primary thrombophilia; N28.0 Ischemia and infarction of kidney; I10 Essential (primary) hypertension; K52.9 Noninfective gastroenteritis and colitis, unspecified; T50.905A Adverse effect of unspecified drugs, medicaments and biological substances, initial encounter; K74.69 Other cirrhosis of liver; R51 Headache; Z79.01 Long term (current) use of anticoagulants; R11.2 Nausea with vomiting, unspecified; D73.5 Infarction of spleen
CPT/HCPCS: 36415; 70450; 71045; 80048; 80053; 82270; 82550; 82553; 83690; 84484; 85025; 85610; 87081; 93005; 96374; 96375; 99285; J2405